=== PATIENT | female | born 1990 | race Caucasian/White ===

== ENCOUNTER 2020-05-31 20:43 | Emergency (ER) | payer MEDICAID ==
[~2020-05-31] VITALS: Ht 149.9 cm; Wt 81.6 kg
[2020-05-31 21:25] VITALS: BP 112/80
--- NOTE | 2020-05-31 21:25 | NUR ---
TO LOBBY A/W BED AMBULATORY
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
[2020-05-31] MEDS ORDERED: IBUPROFEN 800 MG TAB PO ONE (22:45)
[2020-06-01 00:20] VITALS: BP 112/80
--- NOTE | 2020-06-01 00:20 | NUR ---
Patient discharged with v/s stable. Written and verbal after care instructions given and explained. Patient alert, oriented and verbalized understanding of instructions. Ambulatory with steady gait. All questions addressed prior to discharge. ID band removed. Patient advised to follow up with PMD. Rx of MOTRIN & NORCO given. Patient educated on indication of medication including possible reaction and side effects. Opportunity to ask questions provided and answered.
== END 2020-06-01 00:20 | disposition home or self-care (01) ==
LOC: MED 20:43
DX: S09.90XA Unspecified injury of head, initial encounter (principal); M54.5 Low back pain; M54.2 Cervicalgia; Z98.890 Other specified postprocedural states; V89.2XXA Person injured in unspecified motor-vehicle accident, traffic, initial encounter; Y93.89 Activity, other specified; Y92.89 Other specified places as the place of occurrence of the external cause; Y99.8 Other external cause status
CPT/HCPCS: 73080; 73110; 99284